=== PATIENT | female | born 1985 | race American Indian/Alaskan Native ===

== ENCOUNTER 2019-04-12 20:20 | Emergency (ER) | payer BC ==
--- NOTE | 2019-04-12 22:27 | EDM.PDOC ---
ED HPI GENERAL MEDICAL PROBLEM - General Chief Complaint: Respiratory Problem Stated Complaint: COUGH SORE THROAT Time Seen by Provider: 04/12/19 21:53 Source of Information: Reports: Patient History Limitations: Reports: No Limitations - History of Present Illness INITIAL COMMENTS - FREE TEXT/NARRATIVE: Mrs. Medeiros is a very pleasant 33-year-old woman with a past medical history significant for hypothyroidism, who presents to the ED with a complaint of developing body aches on 04/08/2019, laryngitis on 04/09/2019, and a fever of 101 degrees on 04/10/2019, that did not persist beyond Thursday. She also reports generalized fatigue, some dyspnea, a slight cough, and yawning due to being tired. She states that she took 2 doses of Tylenol Cold & Flu Severe (acetaminophen, dextromethorphan, guaifenesin, and phenylephrine), with no relief of her symptoms at all. Here in the ED, the patient is found to be mildly tachycardic, but is otherwise hemodynamically stable and afebrile, with normal oxygen saturation on room air. The patient does not have a PCP. 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 She received an influenza vaccine this season. 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: , Other (See Below) (Endometrial polyps) Endocrine/Metabolic History: Reports: Hypothyroidism, Obesity/BMI 30+ - Past Surgical History HEENT Surgical History: Reports: Oral Surgery (wisdom teeth extraction) Female Surgical History: Reports: Section (x 1), D&C (x 2) Social & Family History - Tobacco Use Smoking Status *Q: Never Smoker - Caffeine Use Caffeine Use: Reports: Coffee - Alcohol Use Alcohol Use History: No - Recreational Drug Use Recreational Drug Use: No - Living Situation & Occupation Living situation: Reports: , with Spouse, with Family (2 kids) 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 ED EXAM, GENERAL - Physical Exam Exam: See Below Exam Limited By: No Limitations General Appearance: Alert, WD/WN, No Apparent Distress Eye Exam: Bilateral Eye: EOMI, Normal Inspection Ears: Normal External Exam, Normal Canal, Hearing Grossly Normal, Other (Left TM dull in appearance. Right TM normal.) Nose: Normal Inspection, Normal Mucosa, No Blood Throat/Mouth: Normal Inspection, Normal Lips, Normal Teeth, Normal Gums, Normal Oropharynx, Normal Voice, No Airway Compromise Head: Atraumatic, Normocephalic Neck: Normal Inspection, Supple, Non-Tender, Full Range of Motion. No: Lymphadenopathy (L), Lymphadenopathy (R) Respiratory/Chest: No Respiratory Distress, Lungs Clear, Normal Breath Sounds, No Accessory Muscle Use. No: Decreased Breath Sounds, Crackles, Rhonchi, Wheezing, Stridor, Prolonged Expiration Cardiovascular: Normal Peripheral Pulses, Regular Rate, Rhythm, No Edema, No Gallop, No JVD, No Murmur, No Rub Peripheral Pulses: 4+: Radial (L), Radial (R) GI/Abdominal: Normal Bowel Sounds, Soft, Non-Tender, No Organomegaly, No Distention, No Abnormal Bruit, No Mass (Female) Exam: Deferred Rectal (Female) Exam: Deferred Back Exam: Normal Inspection, Full Range of Motion, NT Extremities: Normal Inspection, Normal Range of Motion, No Pedal Edema, Normal Capillary Refill Neurological: Alert, Oriented, Normal Cognition, No Motor/Sensory Deficits Psychiatric: Normal Affect Skin Exam: Warm, Dry, Intact, Normal Color, No Rash Course - Vital Signs Last Recorded V/S: Last Vital Signs Temp 36.1 C 04/12/19 20:29 Pulse 106 H 04/12/19 20:29 Resp 20 04/12/19 20:29 BP 138/86 04/12/19 20:29 Pulse Ox 97 04/12/19 20:29 - Re-Assessments/Exams Free Text/Narrative Re-Assessment/Exam: 01/14/20 22:23 Other than some dullness to the left TM, which the patient reports is chronic, her physical exam is completely benign. The patient appears to have a relatively mild viral URI. I explained to the patient that there is no treatment for a viral URI, that it will simply have to run its course. The patient expressed understanding. Departure - Departure Time of Disposition: 22:24 Disposition: Home, Self-Care 01 Condition: Good Clinical Impression: Viral URI with cough - Discharge Information *PRESCRIPTION DRUG MONITORING PROGRAM REVIEWED*: Not Applicable *COPY OF PRESCRIPTION DRUG MONITORING REPORT IN PATIENT MAXIM: Not Applicable Instructions: Upper Respiratory Infection, Adult, [id number] Forms: ED Department Discharge Additional Instructions: You were seen in the emergency room after developing body aches on Thursday, laryngitis on Thursday, and a low-grade fever on Thursday, with associated slight cough, shortness of breath, and fatigue. Based on your history and physical examination, you are suffering from a viral URI, also known as a common cold. As discussed, there are no treatments for a common cold - it will have to run its course. As discussed, we advised against the use of [id number] cough or cold remedies, as they have been shown to be of no benefit, but do have side effects , such as a stomachache. If any other problems, please do not hesitate to return to the ER. Sepsis Event Note - Evaluation Sepsis Screening Result: No Definite Risk - Focused Exam Date Exam was Performed: 04/16/19 Time Exam was Performed: 17:58
== END 2019-04-12 22:35 | disposition home or self-care (01) ==
LOC: JD.ED 20:20
DX: J06.9 Acute upper respiratory infection, unspecified (principal); E03.9 Hypothyroidism, unspecified; E66.9 Obesity, unspecified; Z79.899 Other long term (current) drug therapy; Z98.890 Other specified postprocedural states; Z88.2 Allergy status to sulfonamides; Z88.1 Allergy status to other antibiotic agents
CPT/HCPCS: 87081; 87430; 87804; 99283